=== PATIENT | male | born 1955 | race Caucasian/White ===

== ENCOUNTER 2021-01-14 08:26 | Emergency (ER) | payer OTHER ==
[2021-01-14 09:14] LABS: Absolute Lymphocytes (CBC) 1.6 K/uL (0.7-4.9); Basophils % 0.6 % (0-1.3); Hematocrit 47.8 % (39.6-49.0); Lymphocytes % 29.8 % (15.3-44.8); MPV 7.9 fL (7.6-11.3); Protime INR 1.07; RBC Red Blood Cell Count 5.63 M/uL (4.33-5.43)
[2021-01-14 09:17] LABS: BUN Blood Urea Nitrogen 24 mg/dL (7-18); Bicarbonate 28 mmol/L (21-32); Glucose Level 91 mg/dL (74-106); Magnesium 2.3 mg/dL (1.8-2.4); NT PRO-BNP 1846 pg/mL (<125); Potassium 4.4 mmol/L (3.5-5.1); Sodium Level 140 mmol/L (136-145); Troponin (Emerg Dept Use Only) < 0.02 ng/mL (0.0-0.045)
--- NOTE | 2021-01-14 09:53 | RAD REPORT ---
EXAM DESCRIPTION: RAD - Chest Single View - 01/14/2021 9:32 am CLINICAL HISTORY: PALPITATIONS COMPARISON: None TECHNIQUE: AP portable chest image was obtained 01/14/2021 9:32 am . FINDINGS: Lung volumes are low. No peripheral mass or consolidation. Heart and vasculature are kimberlyn l. No measurable pleural effusion and no pneumothorax. No acute bony abnormality seen. No acute aorti c findings suspected. IMPRESSION: No acute cardiopulmonary process.
--- NOTE | 2021-01-14 10:18 | ER ---
Nurse's Notes [facility] Name: Romero Clark Age: 65 yrs Sex: Male : 1955 Arrival Date: 01/14/2021 Time: 08:27 Bed Waiting Private MD: Diagnosis: Paroxysmal atrial fibrillation Presentation: 01/14 08:34 Chief complaint: Patient states: PT states heart beats fast on and off. Coronavirus da3 screen: Client denies travel out of the [place] in the last 14 days. At this time, the client does not indicate any symptoms associated with coronavirus-19. Ebola Screen: No symptoms or risks identified at this time. 08:34 Method Of Arrival: Ambulatory da3 08:40 Acuity: EDEN 3 da3 Triage Assessment: 08:39 General: Appears in no apparent distress. comfortable. da3 Historical: - Allergies: 08:36 sulfa; da3 08:36 Bactrim; da3 - PMHx: 08:36 Atrial fibrillation; da3 - Immunization history:: Client reports receiving the 1st dose of the Covid vaccine, . - Family history:: not pertinent. - Hospitalizations: : No recent hospitalization is reported. Vital Signs: 08:39 BP 101 / 83; Pulse 103; Resp 18; Temp 97.2; Pulse Ox 98% on R/A; da3 10:05 BP 100 / 72; Pulse 81; Resp 18; Temp 96.6; Pulse Ox 99% on R/A; da3 ED Course: 08:27 Patient arrived in ED. mr 08:38 Donald Doherty MD is Attending Physician. rn 08:40 Triage completed. da3 08:40 Inserted saline lock: 20 gauge in left antecubital area, using aseptic technique. Blood kj1 collected. 08:40 Initial lab(s) drawn, by tn, sent to lab. kj1 09:33 XRAY Chest (1 view) In Process Unspecified. EDMS 10:17 Jamil Mcpherson MD is Referral Physician. rn Administered Medications: No medications were administered Outcome: 10:18 Discharge ordered by . rn 10:20 Patient left the ED. da3 Signatures: Dispatcher [employer] EDNV Salima Segal mr Donald Doherty MD MD rn Jackson, Kandis kj1 Aj Fitzpatrick RN RN da3 Corrections: (The following items were deleted from the chart) 08:38 08:36 Allergies: No Known Allergies; da3 da3 08:38 08:36 PMHx: atrial; da3 da3 09:19 09:18 Initial lab(s) drawn, by me, sent to lab. kj1 kj1
--- NOTE | 2021-01-14 10:18 | EDPHYS ---
Physician Documentation [facility] Name: Romero Clark Age: 65 yrs Sex: Male : 1955 Arrival Date: 01/14/2021 Time: 08:27 Bed Waiting Private MD: ED Physician Donald Doherty HPI: 01/14 08:45 This 65 yrs old Male presents to ER via Ambulatory with complaints of rn Palpitations. 08:45 The patient presents with a history of irregular heart beat, heart racing. Context: The rn symptoms occur at rest. Onset: The symptoms/episode began/occurred 3 day(s) ago. Duration: The patient or guardian reports multiple episodes, that are intermittent. Modifying factors: The symptoms are aggravated by nothing. The symptoms are alleviated by nothing. Associated signs and symptoms: Pertinent positives: lightheadedness, Pertinent negatives: chest pain, fever, SOB, syncope. Severity of symptoms: At their worst the symptoms were moderate in the emergency department the symptoms have improved. The patient has experienced similar episodes in the past. The patient has not recently seen a physician. Patient reports feeling palpitations, heart racing, irregular for 3 days now. Reports has seen Dr. Chacon years ago, diagnosed with atrial fibrillation, initially prescribed Multaq but was too expensive and never filled it, currently takes metoprolol intermittently as well as a baby aspirin intermittently. Seems like patient only takes medication when feels heart is fast or problem, but not daily. Reports feels a little lightheaded, but denies chest pain or shortness of breath. No syncope.. Historical: - Allergies: 08:36 sulfa; da3 08:36 Bactrim; da3 - PMHx: 08:36 Atrial fibrillation; da3 - Immunization history:: Client reports receiving the 1st dose of the Covid vaccine, . - Family history:: not pertinent. - Hospitalizations: : No recent hospitalization is reported. ROS: 08:48 Constitutional: Negative for fever, chills, and weight loss, Eyes: Negative for injury, rn pain, redness, and discharge, Neck: Negative for injury, pain, and swelling, Cardiovascular: Negative for chest pain, and edema, Respiratory: Negative for shortness of breath, cough, wheezing, and pleuritic chest pain, Abdomen/GI: Negative for abdominal pain, nausea, vomiting, diarrhea, and constipation, Back: Negative for injury and pain, MS/Extremity: Negative for injury and deformity, Skin: Negative for injury, rash, and discoloration, Neuro: Negative for headache, weakness, numbness, tingling, and seizure. 08:48 All other systems are negative. Exam: 08:48 Constitutional: This is a well developed, well nourished patient who is awake, alert, rn and in no acute distress. Head/Face: Normocephalic, atraumatic. Eyes: Periorbital areas with no swelling, redness, or edema. Cardiovascular: Tachycardic, irregular rhythm. No pulse deficits. Respiratory: No increased work of breathing, no retractions or nasal flaring. Skin: Warm, dry MS/ Extremity: Pulses equal, no cyanosis. Neuro: Awake and alert, GCS 15 09:59 ECG was reviewed by the Attending Physician. rn Vital Signs: 08:39 BP 101 / 83; Pulse 103; Resp 18; Temp 97.2; Pulse Ox 98% on R/A; da3 10:05 BP 100 / 72; Pulse 81; Resp 18; Temp 96.6; Pulse Ox 99% on R/A; da3 MDM: 08:38 Patient medically screened. rn 10:14 ENRIQUE Risk Score: 1 - ASA use in past 7 days, Total Score = 1. Differential diagnosis: rn arrythmia, dehydration, stress disorder, atrial fibrillation. Data reviewed: vital signs, nurses notes, lab test result(s), EKG, radiologic studies, plain films, and as a result, I will discharge patient. Data interpreted: surveillance monitor: rate is 81 beats/min, rhythm is atrial fibrillation, with no ectopy, Interpretation: atrial fibrillation, Pulse oximetry: on room air is 99 %. Interpretation: normal. Test interpretation: by ED physician or midlevel provider: ECG, plain radiologic studies, CXR without pulmonary edema or infiltrate. Counseling: I had a detailed discussion with the patient and/or guardian regarding: the historical points, exam findings, and any diagnostic results supporting the discharge/admit diagnosis, lab results, radiology results, the need for outpatient follow up, to return to the emergency department if symptoms worsen or persist or if there are any questions or concerns that arise at home. Response to treatment: the patient's symptoms have mildly improved after treatment, and as a result, I will discharge patient. Special discussion: I discussed with the patient/guardian in detail that at this point there is no indication for admission to the hospital. It is understood, however, that if the symptoms persist or worsen the patient needs to return immediately for re-evaluation. Based on the history and exam findings, there is no indication for further emergent testing or inpatient evaluation. I discussed with the patient/guardian the need to see the corrugator helper for further evaluation of the symptoms. ED course: Patient with negative troponin, rate controlled, and blood pressure already on the lower side. Chest x-ray without pulmonary edema. Repeat vitals show heart rate in the 80s. Consulted with Dr. Mcpherson who agrees with outpatient evaluation and treatment, will see patient at 1 PM in his clinic. Patient grateful and agrees with plan. Will discharge home with continuation of regular metoprolol and return precautions. Will continue to take aspirin given low CHADS2 score. 01/14 08:45 Order name: Basic Metabolic Panel rn 01/14 08:45 Order name: CBC with Diff; Complete Time: 09:24 rn 01/14 08:45 Order name: Magnesium; Complete Time: 09:24 rn 01/14 08:45 Order name: NT PRO-BNP; Complete Time: 09:24 rn 01/14 08:45 Order name: PT-INR; Complete Time: 10:00 rn 01/14 08:45 Order name: Troponin (emerg Dept Use Only); Complete Time: 09:24 rn 01/14 08:45 Order name: XRAY Chest (1 view); Complete Time: 10:00 rn 01/14 08:45 Order name: EKG; Complete Time: 08:45 rn 01/14 08:45 Order name: Cardiac monitoring rn 01/14 08:45 Order name: EKG - Nurse/Tech rn 01/14 08:45 Order name: IV Saline Lock rn 01/14 08:45 Order name: Labs collected and sent rn 01/14 08:45 Order name: Basic Metabolic Panel; Complete Time: 09:24 EDMS 01/14 08:45 Order name: O2 Per Protocol rn 01/14 08:45 Order name: O2 Sat Monitoring rn EC:59 Rate is 101 beats/min. Rhythm is irregularly irregular. QRS [place] is Normal. TN interval rn is normal. QRS interval is normal. QT interval is normal. No Q waves. T waves are Normal. No ST changes noted. Clinical impression: Atrial Fibrillation. Interpreted by me. Reviewed by me. Administered Medications: No medications were administered Disposition Summary: 01/14/21 10:18 Discharge Ordered Location: Home rn Problem: an ongoing problem rn Symptoms: have improved rn Condition: Stable rn Diagnosis - Paroxysmal atrial fibrillation rn Followup: rn - With: Jamil Mcpherson MD - When: 01/16/21 at 1pm - Reason: Further diagnostic work-up, Recheck today's complaints, Continuance of care, Re-evaluation by your physician Discharge Instructions: - Discharge Summary Sheet rn - Atrial Fibrillation rn Forms: - Medication Reconciliation Form rn - Thank You Letter rn - Antibiotic rn lactation - Prescription Opioid Use rn Prescriptions: - Metoprolol Tartrate 25 mg Oral Tablet - take 1 tablet by ORAL route 2 times per day with a meal; 60 tablet; Refills: 0, rn Product Selection Permitted Signatures: Dispatcher [employer] EDMS Donald Doherty MD MD rn Allan, David, RN RN da3 Corrections: (The following items were deleted from the chart) 08:38 08:36 Allergies: No Known Allergies; da3 da3 08:38 08:36 PMHx: atrial; da3 da3
[2021-01-14 10:30] VITALS: BP 100/72; TEMP 96.6; O2SAT 99
--- NOTE | 2021-01-15 13:02 | EKG ---
Test Date: 2021-01-14 Test Time: 08:44:09 Processing Archivist: RENATE MEASUREMENT RESULTS: Intervals: Rate: 101 OR: QRSD: 78 QT: 340 QTc: 440 [place]: P: OR: QRS: 6 T: 59 INTERPRETIVE STATEMENTS: Atrial fibrillation with rapid ventricular response Abnormal ECG No previous ECG available for comparison Electronically Signed On 01-15-21 12:59:29 CDT by Jamil Mcpherson
== END 2021-01-14 10:20 | disposition home or self-care (01) ==
LOC: ER 08:26
DX: I48.0 Paroxysmal atrial fibrillation (principal); Z88.1 Allergy status to other antibiotic agents; Z88.2 Allergy status to sulfonamides
CPT/HCPCS: 36415; 71045; 80048; 83735; 83880; 84484; 85025; 85610; 93005; 99283

== ENCOUNTER 2021-03-08 14:01 | Observation (INO) | payer OTHER ==
[2021-03-08 14:37] LABS: Absolute Lymphocytes (CBC) 1.4 K/uL (0.7-4.9); Basophils % 0.5 % (0-1.3); Hematocrit 42.2 % (39.6-49.0); Lymphocytes % 32.4 % (15.3-44.8)
[2021-03-08 14:42] LABS: Protime INR 1.26
[2021-03-08 14:57] LABS: ALT/SGPT 118 U/L (12-78); AST/SGOT 48 U/L (15-37); Albumin 3.7 g/dL (3.4-5.0); Alkaline Phosphatase 73 U/L (45-117); BUN Blood Urea Nitrogen 19 mg/dL (7-18); Bicarbonate 24 mmol/L (21-32); Bilirubin Direct 0.3 mg/dL (0-0.2); Bilirubin Total 1.3 mg/dL (0.2-1.0); Glucose Level 121 mg/dL (74-106); Magnesium 2.1 mg/dL (1.8-2.4); NT PRO-BNP 1347 pg/mL (<125); Potassium 4.1 mmol/L (3.5-5.1); Sodium Level 143 mmol/L (136-145); Troponin (Emerg Dept Use Only) < 0.02 ng/mL (0.0-0.045)
--- NOTE | 2021-03-08 14:57 | RAD REPORT ---
EXAM DESCRIPTION: RAD - Chest Single View - 03/08/2021 2:42 pm CLINICAL HISTORY: CHEST PAIN COMPARISON: Chest Single View dated 01/14/2021 FINDINGS: Lines: None. Lungs: No evidence of edema or pneumonia. Pleural: No significant pleural effusions or pneumothorax. Cardiac: The heart size is within normal limits. Bones: No acute fractures. Other: IMPRESSION: No acute cardiopulmonary disease.
[2021-03-08] MEDS ORDERED: METOPROLOL TARTRATE 5 MG/5 ML INJ IV ONE (15:45)
[2021-03-08] MEDS ORDERED: NA CHLORIDE 0.9% 1,000 ML ONE (15:45)
--- NOTE | 2021-03-08 16:25 | EDPHYS ---
Physician Documentation [facility] Name: Romero Clark Age: 66 yrs Sex: Male : 1955 Arrival Date: 03/08/2021 Time: 14:04 Bed 24 Private MD: Avtar Delaney ED Physician Yves Perez HPI: 03/08 15:09 This 66 yrs old Male presents to ER via Ambulatory with complaints of AFIB. ma2 15:09 The patient presents with a history of irregular heart beat. Onset: The ma2 symptoms/episode began/occurred suddenly, At 4 AM was. Duration: The patient or guardian reports a single episode. Associated signs and symptoms: Pertinent negatives: cough, SOB, syncope, unusual stressors. Severity of symptoms: At their worst the symptoms were moderate in the emergency department the symptoms are unchanged. The patient has experienced similar episodes in the past. Patient also had TIA 5 days ago. Historical: - Allergies: 14:09 Bactrim; hb 14:09 Sulfa; hb - PMHx: 14:09 Atrial fibrillation; hb - Immunization history:: Client reports receiving the 1st dose of the Covid vaccine. - Social history:: Smoking status: Patient denies any tobacco usage or history of. Patient/guardian denies using alcohol, street drugs, The patient lives with family. - Family history:: not pertinent. - Hospitalizations: : No recent hospitalization is reported. ROS: 15:09 Constitutional: Negative for fever, chills, and weight loss. ma2 15:09 All other systems are negative. Exam: 15:09 Constitutional: This is a well developed, well nourished patient who is awake, alert, ma2 and in no acute distress. Head/Face: Normocephalic, atraumatic. Eyes: Pupils equal round and reactive to light, extra-ocular motions intact. Lids and lashes normal. Conjunctiva and sclera are non-icteric and not injected. Cornea within normal limits. Periorbital areas with no swelling, redness, or edema. ENT: Nares patent. No nasal discharge, no septal abnormalities noted. Tympanic membranes are normal and external auditory canals are clear. Oropharynx with no redness, swelling, or masses, exudates, or evidence of obstruction, uvula midline. Mucous membranes moist. Neck: Trachea midline, no thyromegaly or masses palpated, and no cervical lymphadenopathy. Supple, full range of motion without nuchal rigidity, or vertebral point tenderness. No Meningismus. Chest/axilla: Normal chest wall appearance and motion. Nontender with no deformity. No lesions are appreciated. Respiratory: Lungs have equal breath sounds bilaterally, clear to auscultation and percussion. No rales, rhonchi or wheezes noted. No increased work of breathing, no retractions or nasal flaring. Abdomen/GI: Soft, non-tender, with normal bowel sounds. No distension or tympany. No guarding or rebound. No evidence of tenderness throughout. Back: No spinal tenderness. No costovertebral tenderness. Full range of motion. Skin: Warm, dry with normal turgor. Normal color with no rashes, no lesions, and no evidence of cellulitis. MS/ Extremity: Pulses equal, no cyanosis. Neurovascular intact. Full, normal range of motion. Neuro: Awake and alert, GCS 15, oriented to person, place, time, and situation. Cranial nerves II-XII grossly intact. Motor strength 5/5 in all extremities. Sensory grossly intact. Cerebellar exam normal. Normal gait. 15:09 Cardiovascular: Rate: tachycardic, Rhythm: irregularly irregular, Pulses: Heart sounds: normal, Bilateral blood pressure: is equal. Vital Signs: 14:07 BP 125 / 81; Pulse 103; Resp 18; Temp 97.4; Pulse Ox 98% ; Weight 99.79 kg; Height 5 hb ft. 11 in. (180.34 cm); Pain 0/10; 14:30 BP 101 / 70; Pulse 99; Resp 21; Pulse Ox 99% ; bp 15:30 BP 103 / 65; Pulse 107; Resp 21; Pulse Ox 99% ; bp 20:43 BP 115 / 84; Pulse 98; Resp 15; Temp 98.1; Pulse Ox 100% on R/A; Pain 0/10; sj1 14:07 Body Mass Index 30.68 (99.79 kg, 180.34 cm) hb MDM: 14:17 Patient medically screened. [facility] 15:09 Differential diagnosis: arrythmia, dehydration, stress disorder. md2 16:22 Data reviewed: vital signs, nurses notes. Counseling: I had a detailed discussion with ma2 the patient and/or guardian regarding: the historical points, exam findings, and any diagnostic results supporting the discharge/admit diagnosis, the presence of at least one elevated blood pressure reading (>120/80) during this emergency department visit, the need for outpatient follow up. Response to treatment: the patient's symptoms have markedly improved after treatment. ED course: Patient had TIA 6 days ago, therefore he is high risk, his A. fib is paroxysmal. Rate is controlled to 70 bpm, he is normotensive at this point.. 03/08 14:06 Order name: Basic Metabolic Panel md2 03/08 14:06 Order name: CBC with Diff md2 03/08 14:06 Order name: LFT's md2 03/08 14:06 Order name: Magnesium md2 03/08 14:06 Order name: NT PRO-BNP md2 03/08 14:06 Order name: PT-INR; Complete Time: 15:02 ma2 03/08 14:06 Order name: Troponin (emerg Dept Use Only) [facility] 03/08 14:06 Order name: Basic Metabolic Panel; Complete Time: 15:02 EDMS 03/08 14:07 Order name: CBC with Automated Diff; Complete Time: 15:02 EDMS 03/08 14:07 Order name: Liver (Hepatic) Function; Complete Time: 15:02 EDMS 03/08 14:07 Order name: Magnesium; Complete Time: 15:02 EDMS 03/08 14:07 Order name: NT PRO-BNP; Complete Time: 15:02 EDMS 03/08 14:07 Order name: Troponin (Emerg Dept Use Only); Complete Time: 15:02 EDMS 03/08 17:08 Order name: COVID-19 : Document "Date of Symptom Onset" if Symptomatic. eb 03/08 14:06 Order name: XRAY Chest (1 view); Complete Time: 15:02 ma2 03/08 14:06 Order name: EKG; Complete Time: 14:07 ma2 03/08 14:06 Order name: Cardiac monitoring; Complete Time: 14:26 ma2 03/08 14:06 Order name: EKG - Nurse/Tech; Complete Time: 14:26 ma2 03/08 14:06 Order name: IV Saline Lock; Complete Time: 14:26 ma2 03/08 14:06 Order name: Labs collected and sent; Complete Time: 14:27 ma2 03/08 14:06 Order name: O2 Per Protocol; Complete Time: 14:27 ma2 03/08 14:06 Order name: O2 Sat Monitoring; Complete Time: 14:27 md2 03/08 17:20 Order name: CORONAVIRUS EDMS 03/08 18:44 Order name: SARS-COV-2 RT PCR EDMS Administered Medications: 15:30 Drug: Metoprolol 5 mg Route: IVP; Site: right forearm; bp 19:19 Follow up: Response: Blood pressure is lowered 1 20:53 Follow up: Response: Marked relief of symptoms 1 15:30 Drug: NS 0.9% 1000 ml Route: IV; Rate: 1 bolus; Site: right forearm; bp 20:53 Follow up: IV Status: Completed infusion 1 Disposition Summary: 03/08/21 16:24 Hospitalization Ordered Hospitalization Status: Inpatient Admission md2 Provider: Bennie Doherty ma Location: Telemetry/MedSurg (Inpatient) ma2 Condition: Stable ma2 Problem: new ma2 Symptoms: are unchanged md2 Bed/Room Type: Standard [facility] Room Assignment: 209(03/08/21 20:16) eb Diagnosis - Persistent atrial fibrillation - with RVR ma2 Forms: - Medication Reconciliation Form ma2 - SBAR form md2 Signatures: Dispatcher [employer] EDJustina Mena RN RN Vin Booker RN RN bp Alzahri, Mohammad, MD MD md2 Jeanine Steele Sade RN sj1 Corrections: (The following items were deleted from the chart) 20:16 16:24 ma2 eb
--- NOTE | 2021-03-08 16:25 | ER ---
Nurse's Notes [facility] Name: Romero Clark Age: 66 yrs Sex: Male : 1955 Arrival Date: 03/08/2021 Time: 14:04 Bed 24 Private MD: Avtar Delaney Diagnosis: Persistent atrial fibrillation-with RVR Presentation: 03/08 14:07 Chief complaint: Palpitations since this morning. Reports TIA 1 week ago. Hx of Afib hb and HTN. Coronavirus screen: At this time, the client does not indicate any symptoms associated with coronavirus-19. Ebola Screen: No symptoms or risks identified at this time. Initial Sepsis Screen: Does the patient meet any 2 criteria? No. Patient's initial sepsis screen is negative. Does the patient have a suspected source of infection? No. Patient's initial sepsis screen is negative. Risk Assessment: Do you want to hurt yourself or someone else? Patient reports no desire to harm self or others. Onset of symptoms was March 08, 2021. 14:07 Method Of Arrival: Ambulatory hb 14:07 Acuity: EDEN 3 hb Triage Assessment: 14:15 General: Appears in no apparent distress. comfortable, Behavior is cooperative, bp appropriate for age, anxious. Pain: Denies pain. EENT: No deficits noted. Neuro: No deficits noted. Cardiovascular: Rhythm is atrial fibrillation with rapid ventricular response. Respiratory: No deficits noted. GI: No signs and/or symptoms were reported involving the gastrointestinal system. : No signs and/or symptoms were reported regarding the genitourinary system. Derm: No deficits noted. Musculoskeletal: No deficits noted. Historical: - Allergies: 14:09 Bactrim; hb 14:09 Sulfa; hb - PMHx: 14:09 Atrial fibrillation; hb - Immunization history:: Client reports receiving the 1st dose of the Covid vaccine. - Social history:: Smoking status: Patient denies any tobacco usage or history of. Patient/guardian denies using alcohol, street drugs, The patient lives with family. - Family history:: not pertinent. - Hospitalizations: : No recent hospitalization is reported. Screenin:25 Abuse screen: Denies threats or abuse. Denies injuries from another. Nutritional bp screening: No deficits noted. Tuberculosis screening: No symptoms or risk factors identified. Fall Risk None identified. Assessment: 14:15 General: SEE TRIAGE NOTE. bp 15:30 Reassessment: No changes from previously documented assessment. Patient and/or family bp updated on plan of care and expected duration. Pain level reassessed. 16:30 Reassessment: No changes from previously documented assessment. Patient and/or family bp updated on plan of care and expected duration. Pain level reassessed. PT TO BE ADMITTED. 17:30 Reassessment: HOSPITALIST AT B/S. bp 18:30 Reassessment: No changes from previously documented assessment. Patient and/or family bp updated on plan of care and expected duration. Pain level reassessed. ADMIT IN PROCESS. 21:14 Reassessment: Report called Nat AGRAWAL on 2 nd floor. bc5 Vital Signs: 14:07 BP 125 / 81; Pulse 103; Resp 18; Temp 97.4; Pulse Ox 98% ; Weight 99.79 kg; Height 5 hb ft. 11 in. (180.34 cm); Pain 0/10; 14:30 BP 101 / 70; Pulse 99; Resp 21; Pulse Ox 99% ; bp 15:30 BP 103 / 65; Pulse 107; Resp 21; Pulse Ox 99% ; bp 20:43 BP 115 / 84; Pulse 98; Resp 15; Temp 98.1; Pulse Ox 100% on R/A; Pain 0/10; sj1 14:07 Body Mass Index 30.68 (99.79 kg, 180.34 cm) hb ED Course: 14:04 Patient arrived in ED. mr 14:04 Avtar Delaney MD is Private Physician. mr 14:09 Triage completed. hb 14:09 Arm band placed on. hb 14:17 Yves Perez MD is Attending Physician. ma2 14:23 Vin Arias, NGHIA is Primary Nurse. bp 14:25 Patient has correct armband on for positive identification. Bed in low position. Call bp light in reach. Side rails up X2. Adult w/ patient. 14:25 Inserted saline lock: 20 gauge in right wrist, using aseptic technique. Blood collected.bp 14:42 XRAY Chest (1 view) In Process Unspecified. EDMS 16:24 Bennie Doherty MD is Hospitalizing Provider. ma2 20:45 No provider procedures requiring assistance completed. sj1 20:53 COVID-19 : Document "Date of Symptom Onset" if Symptomatic. Sent. sj1 20:53 CORONAVIRUS Sent. sj1 Administered Medications: 15:30 Drug: Metoprolol 5 mg Route: IVP; Site: right forearm; bp 19:19 Follow up: Response: Blood pressure is lowered sj1 20:53 Follow up: Response: Marked relief of symptoms sj1 15:30 Drug: NS 0.9% 1000 ml Route: IV; Rate: 1 bolus; Site: right forearm; bp 20:53 Follow up: IV Status: Completed infusion 1 Outcome: 16:24 Decision to Hospitalize by Provider. ma2 21:41 Patient left the ED. sj1 Signatures: Dispatcher [employer] HERMES SegalSalima mr Justina Persaud RN RN Vin Booker RN RN Yves Dash MD MD ma2 Bethany Myers RN RN 5 Valentine Canela RN RN sj1 Corrections: (The following items were deleted from the chart) 16:08 11:53 Metoprolol 5 mg IVP in right forearm bp bp
[2021-03-08] MEDS: SOTALOL HCL 80 MG TAB PO SCH (17:11)
--- NOTE | 2021-03-08 17:15 | P.HP ---
Certification for Inpatient Patient admitted to: Observation With expected LOS: <2 Midnights Patient will require the following post-hospital care: None Practitioner: I am a practitioner with admitting privileges, knowledge of patient current condition, hospital course, and medical plan of care. Services: Services provided to patient in accordance with Admission requirements found in Title 42 Section 412.3 of the Code of Federal Regulations Patient History Date of Service: 03/08/21 Primary Care Provider: None; Cardiology-Dr. Mcpherson Reason for admission: Palpitations History of Present Illness: 66-year-old male with history of atrial fibrillation, hyperlipidemia and recent TIA. Patient about 1 week ago was seen at [facility] for vision loss. Patient was sent to [place] for further evaluation. Patient was found to have TIA as he has full recovery of vision. Patient further reports that he has a history of atrial fibrillation. He is seen by cardiology. He takes metoprolol. He reports that he was seen by cardiology in the past. His medication was increased. When he last saw his balloon tester his balloon tester told him to continue with medication but the patient continue to use his prior dose. Today he had palpitations. Patient came to the ER for further evaluation. In the ER patient was evaluated. Patient was found to have A. fib with RVR with a rate around 120. Chest x-ray unremarkable. Labs reviewed. Liver function test slightly elevated. Covid test pending. Patient admitted for further evaluation. - Past Medical/Surgical History Diabetic: No -: Atrial fibrillation on chronic anticoagulation therapy -: History of TIA -: Hyperlipidemia -: Thyroid nodule -: Rotator cuff repair Psychosocial/ Personal History: Patient is - Family History Family History: Reviewed- Non-Contributory - Social History Smoking Status: Never smoker Alcohol use: No CD- Drugs: No Caffeine use: Yes Place of Residence: Home Review of Systems General: As per HPI Eyes: Unremarkable ENT: Unremarkable Respiratory: Unremarkable Cardiovascular: Palpitations, As per HPI Gastrointestinal: Unremarkable Genitourinary: Unremarkable Musculoskeletal: Unremarkable Integumentary: Unremarkable Neurological: Unremarkable Lymphatics: Unremarkable Physical Examination - Studies Laboratory Data (last 24 hrs) 03/08/21 14:16: PT 14.5 H, INR 1.26 03/08/21 14:16: WBC 4.40, Hgb 14.5, Hct 42.2, Plt Count 217 03/08/21 14:16: Sodium 143, Potassium 4.1, BUN 19 H, Creatinine 0.89, Glucose 121 H, Magnesium 2.1, Total Bilirubin 1.3 H, AST 48 H, ALT 118 H, Alkaline Phosphatase 73 Assessment and Plan - Plan COVID: pending CXR: Unremarkable Physical Exam: GENERAL: The patient is a well-developed, well-nourished, in no apparent distress. Alert and oriented x3. VITAL SIGNS: Reviewed HEENT: Head is normocephalic and atraumatic. Extraocular muscles are intact. Pupils are equal, round, and reactive to light and accommodation. Nares appeared normal. Mouth is well hydrated and without lesions. Mucous membranes are moist. NECK: Supple. No carotid bruits. No lymphadenopathy or thyromegaly. LUNGS: Clear to auscultation. No crackles or wheezes are heard. HEART: Irregular irregular. Rate around 100-110 ABDOMEN: Soft, nontender, and nondistended. Positive bowel sounds. No hepatosplenomegaly was noted. EXTREMITIES: Without any cyanosis, clubbing, rash, lesions or peripheral edema. NEUROLOGIC: The patient is oriented to person, place and time. Strength and sensation are grossly intact. Face is symmetric. SKIN: Normal color, turgor and temperature. No ulcerations or rashes noted. Impression: Atrial fibrillation with RVR Hyperlipidemia History of recent TIA Thyroid nodule Plan: Atrial fibrillation with RVR: Patient will be admitted for further evaluation and treatment. Case discussed with cardiology. Cardiology recommends to discontinue metoprolol. Will start Betapace 80 mg 1 pill twice daily. Continue Eliquis 5 mg 1 pill twice daily. Continue Lipitor 40 mg daily. We will add folic acid 1 mg daily. Will monitor the patient closely. Continue to monitor telemetry and cardiac enzymes. Anticipate discharge in the next 24 hours after third dose of Betapace given and medically stable. Await further recommendations from cardiology. Hyperlipidemia: Continue Lipitor. Will check fasting lipid panel. History of recent TIA: Patient recently hospitalized at [facility]. Patient was started on Eliquis at that time. Continue Eliquis. Patient asymptomatic at this time. Thyroid nodule: Patient is to follow-up with a specialist here soon to get this further worked up. Will check thyroid panel. Code Status: Full Code DVT prophylaxis: Eliquis Advanced Care Planning-30 minutes: Home at discharge Discharge Plan: Home Plan to discharge in: 24 Hours - Advance Directives Does patient have a Living Will: No Does patient have a Durable POA for Healthcare: No - Code Status/Comfort Care Code Status Assessed: Yes (Full code) Time Spent Managing Pts Care (In Minutes): 55
[2021-03-08] MEDS ORDERED: ACETAMINOPHEN 500 MG TAB PO PRN (20:27)
[2021-03-08] MEDS ORDERED: ONDANSETRON 4 MG/2 ML VIAL IV PRN (20:27)
[2021-03-08] MEDS: APIXABAN 5 MG TABLET PO SCH (20:42)
[2021-03-08] MEDS ORDERED: SOTALOL HCL 80 MG TAB ONE (20:57)
[2021-03-08] MEDS ORDERED: ATORVASTATIN 20 MG TAB ONE (20:57)
[2021-03-08] MEDS ORDERED: APIXABAN 5 MG TABLET ONE (20:58)
[2021-03-08] MEDS ORDERED: ATORVASTATIN 40 MG TAB PO SCH (21:00)
[2021-03-08 21:46] VITALS: BMI 31.5
[2021-03-08 22:47] LABS: Creatine Phosphokinase 88 U/L (39-308); Troponin I < 0.02 ng/mL (0.0-0.045)
[2021-03-09 04:10] VITALS: O2SAT 96
[2021-03-09 04:57] LABS: Absolute Lymphocytes (CBC) 1.6 K/uL (0.7-4.9); Basophils % 0.6 % (0-1.3); Hematocrit 41.3 % (39.6-49.0); Lymphocytes % 36.6 % (15.3-44.8); MPV 8.3 fL (7.6-11.3); RBC Red Blood Cell Count 4.86 M/uL (4.33-5.43)
[2021-03-09] MEDS: SOTALOL HCL 80 MG TAB PO SCH ×2 (05:18→14:21)
[2021-03-09 05:22] LABS: ALT/SGPT 89 U/L (12-78); AST/SGOT 32 U/L (15-37); Albumin 3.2 g/dL (3.4-5.0); Alkaline Phosphatase 61 U/L (45-117); BUN Blood Urea Nitrogen 16 mg/dL (7-18); Bicarbonate 26 mmol/L (21-32); Glucose Level 99 mg/dL (74-106); HDL Cholesterol 33 mg/dL (40-60); LDL Cholesterol, Calculated 53 (<130); Magnesium 2.1 mg/dL (1.8-2.4); Protein, Total 6.3 g/dL (6.4-8.2); Sodium Level 143 mmol/L (136-145)
--- NOTE | 2021-03-09 06:06 | P.PN ---
Subjective Date of Service: 03/09/21 Primary Care Provider: None; Cardiology-Dr. Mcpherson Chief Complaint: Palpitations Subjective: Improving, Doing well Physical Examination - Vital Signs Temperature: 97.5 F Blood Pressure: 107/58 Pulse: 84 Respirations: 18 Pulse Ox (%): 99 - Studies Laboratory Data (last 24 hrs) 03/08/21 14:16: PT 14.5 H, INR 1.26 03/08/21 14:16: WBC 4.40, Hgb 14.5, Hct 42.2, Plt Count 217 03/08/21 14:16: Sodium 143, Potassium 4.1, BUN 19 H, Creatinine 0.89, Glucose 121 H, Magnesium 2.1, Total Bilirubin 1.3 H, AST 48 H, ALT 118 H, Alkaline Phosphatase 73 Assessment & Plan Discharge Plan: Home Plan to discharge in: 24 Hours Physician Review Additional Text: COVID: negative CXR: COMPARISON: Chest Single View dated 01/14/2021 FINDINGS: Lines: None. Lungs: No evidence of edema or pneumonia. Pleural: No significant pleural effusions or pneumothorax. Cardiac: The heart size is within normal limits. Bones: No acute fractures. IMPRESSION: No acute cardiopulmonary disease. Physical Exam: GENERAL: The patient is a well-developed, well-nourished, in no apparent distress. Alert and oriented x3. VITAL SIGNS: Reviewed HEENT: Neck supple LUNGS: Clear to auscultation. No crackles or wheezes are heard. HEART: A. fib rate controlled ABDOMEN: Soft, nontender, and nondistended. Positive bowel sounds. No hepatosplenomegaly was noted. EXTREMITIES: Without any cyanosis, clubbing, rash, lesions or peripheral edema. NEUROLOGIC: The patient is oriented to person, place and time. Strength and sensation are grossly intact. Face is symmetric. SKIN: Normal color, turgor and temperature. No ulcerations or rashes noted. Impression: Atrial fibrillation with RVR Hyperlipidemia History of recent TIA Thyroid nodule Plan: Atrial fibrillation with RVR: Patient presented with atrial fibrillation. Case discussed at length with cardiology. Patient started on Betapace 80 mg 1 pill twice daily. Patient already takes Eliquis 5 mg 1 pill twice daily. Metoprolol was discontinued. Patient doing well at this time. Anticipate discharge later today after third dose of Betapace given. This to be given at 2 PM. Will discuss further with cardiology. Hyperlipidemia: Continue Lipitor. LDL 53 History of recent TIA: Patient recently hospitalized at [facility]. Patient was started on Eliquis at that time. Continue Eliquis. Patient asymptomatic at this time. Thyroid nodule: Patient is to follow-up with a specialist here soon to get this further worked up. Will check thyroid panel. Code Status: Full Code DVT prophylaxis: Eliquis Advanced Care Planning-30 minutes: Home at discharge Discharge Plan: Home Time Spent Managing Pts Care (In Minutes): 55
[2021-03-09] MEDS: APIXABAN 5 MG TABLET PO SCH (08:34)
[2021-03-09] MEDS ORDERED: FOLIC ACID 1 MG TABLET PO SCH (09:00)
--- NOTE | 2021-03-09 09:20 | P.DS ---
Admission Date: 03/08/21 Discharge Date: 03/09/21 Primary Care Provider: Dr. Delaney; Cardiology-Dr. Mcpherson Disposition: ROUTINE DISCHARGE Discharge Condition: GOOD Reason for Admission: Palpitations Consultations: Cardiology-Dr. Mcpherson Procedures: COVID: negative CXR: COMPARISON: Chest Single View dated 01/14/2021 FINDINGS: Lines: None. Lungs: No evidence of edema or pneumonia. Pleural: No significant pleural effusions or pneumothorax. Cardiac: The heart size is within normal limits. Bones: No acute fractures. IMPRESSION: No acute cardiopulmonary disease. Medical Problem List: Atrial fibrillation with RVR Hyperlipidemia History of recent TIA Thyroid nodule Brief History of Present Illness: 66-year-old male with history of atrial fibrillation, hyperlipidemia and recent TIA. Patient about 1 week ago was seen at [facility] for vision loss. Patient was sent to [place] for further evaluation. Patient was found to have TIA as he has full recovery of vision. Patient further reports that he has a history of atrial fibrillation. He is seen by cardiology. He takes metoprolol. He reports that he was seen by cardiology in the past. His medication was increased. When he last saw his dandy operator his dandy operator told him to continue with medication but the patient continue to use his prior dose. Today he had palpitations. Patient came to the ER for further evaluation. In the ER patient was evaluated. Patient was found to have A. fib with RVR with a rate around 120. Chest x-ray unremarkable. Labs reviewed. Liver function test slightly elevated. Covid test pending. Patient admitted for further evaluation. Hospital Course: Patient with history of atrial fibrillation. Patient presented with atrial fibrillation with RVR. Patient was admitted for treatment. Case discussed at length with cardiology. Patient was given IV metoprolol with improvement in the emergency room. Patient was transition from metoprolol to Betapace 80 mg 1 pill twice daily. Patient doing well at this time. Patient remains in atrial fibrillation with rate control. At discharge patient will continue with Betapace 80 mg 1 pill twice daily and Eliquis 5 mg 1 pill twice daily. Recommend follow-up with cardiology in 1 to 2 weeks to follow-up his hospitalization. Education on atrial fibrillation provided. Education on Eliquis also provided. Patient with hyperlipidemia. LDL 53. Patient will continue with Lipitor 40 mg daily. Patient with recent history of TIA. Patient asymptomatic at this time. Patient was hospitalized at [facility]. He was started on Eliquis at that time. At discharge patient will continue with Eliquis 5 mg 1 pill twice daily and folic acid 1 mg daily. Patient with history of thyroid nodule. Patient is to see a specialist here soon for further work-up. TSH and free T4 unremarkable. Vital Signs/Physical Exam: Temp Pulse Resp BP Pulse Ox 97.5 F 84 18 107/58 L 99 03/09/21 09:14 03/09/21 09:14 03/09/21 09:14 03/09/21 09:14 03/09/21 09:14 General: Alert, In no apparent distress, Oriented x3, Cooperative HEENT: Atraumatic Neck: Supple Respiratory: Clear to auscultation bilaterally Cardiovascular: Irregular heart rate/rhythm (Atrial fibrillation rate controlled) Gastrointestinal: Normal bowel sounds, No masses, No rebound, No guarding Musculoskeletal: No erythema, No tenderness, No warmth Integumentary: No tenderness/swelling Neurological: Normal speech, Normal strength at 5/5 x4 extr, Normal tone, Normal affect Laboratory Data at Discharge: WBC 4.50 K/uL (4.3-10.9) 03/09/21 04:22 Hgb 14.2 g/dL (13.6-17.9) 03/09/21 04:22 Hct 41.3 % (39.6-49.0) 03/09/21 04:22 Plt Count 204 K/uL (152-406) 03/09/21 04:22 PT 14.5 SECONDS (9.5-12.5) H 03/08/21 14:16 INR 1.26 03/08/21 14:16 Sodium 143 mmol/L (136-145) 03/09/21 04:22 Potassium 4.0 mmol/L (3.5-5.1) 03/09/21 04:22 BUN 16 mg/dL (7-18) 03/09/21 04:22 Creatinine 0.73 mg/dL (0.55-1.3) 03/09/21 04:22 Glucose 99 mg/dL (74-106) 03/09/21 04:22 Magnesium 2.1 mg/dL (1.8-2.4) 03/09/21 04:22 Total Bilirubin 1.0 mg/dL (0.2-1.0) 03/09/21 04:22 AST 32 U/L (15-37) 03/09/21 04:22 ALT 89 U/L (12-78) H 03/09/21 04:22 Alkaline Phosphatase 61 U/L (45-117) 03/09/21 04:22 Troponin I < 0.02 ng/mL (0.0-0.045) 03/08/21 22:08 Triglycerides 111 mg/dL (<150) 03/09/21 04:22 Cholesterol 108 mg/dL (<200) 03/09/21 04:22 HDL Cholesterol 33 mg/dL (40-60) L 03/09/21 04:22 Cholesterol/HDL Ratio 3.27 03/09/21 04:22 Home Medications: Apixaban [Eliquis] 5 mg PO BID 03/08/21 Atorvastatin Calcium 40 mg PO BEDTIME 03/08/21 Folic Acid 1 mg PO DAILY #90 tablet 03/09/21 Sotalol HCl [Betapace*] 80 mg PO BID 6AM 6PM #60 tab 03/09/21 New Medications: Sotalol HCl [Betapace*] 80 mg PO BID 6AM 6PM #60 tab Folic Acid 1 mg PO DAILY #90 tablet Physician Discharge Instructions: Patient with history of atrial fibrillation. Patient presented with atrial fibrillation with RVR. Patient was admitted for treatment. Case discussed at length with cardiology. Patient was given IV metoprolol with improvement in the emergency room. Patient was transition from metoprolol to Betapace 80 mg 1 pill twice daily. Patient doing well at this time. Patient remains in atrial fibrillation with rate control. At discharge patient will continue with Bet apace 80 mg 1 pill twice daily and Eliquis 5 mg 1 pill twice daily. Recommend follow-up with cardiology in 1 to 2 weeks to follow-up his hospitalization. Education on atrial fibrillation provided. Education on Eliquis also provided. Patient with hyperlipidemia. LDL 53. Patient will continue with Lipitor 40 mg daily. Patient with recent history of TIA. Patient asymptomatic at this time. Patient was hospitalized at [facility]. He was started on Eliquis at that time. At discharge patient will continue with Eliquis 5 mg 1 pill twice daily and folic acid 1 mg daily. Patient with history of thyroid nodule. Patient is to see a specialist here soon for further work-up. TSH and free T4 unremarkable. Diet: AHA Activity: Ad carmina Followup: Avtar Delaney MD [Primary Care Provider] - Time spent managing pt's care (in minutes): 55
[2021-03-09 12:43] VITALS: BP 113/68; TEMP 98.5
--- NOTE | 2021-03-09 17:01 | CON ---
Date of Consultation: 03/08/2021 Reason For Consultation: Atrial fibrillation with rapid ventricular response. History Of Present Illness: Mr. Clark is a 66-year-old man. He is very well known to me from previou s office visits. He has a history of atrial fibrillation that is paroxysmal. Came in with rapid zaina tricular response, unrelated to body position, improved at time of the day or exertion. His symptoms have been going on for a few days intermittently, but they got worse about 4 o'clock in the morning today and he came into the emergency room. Recently, he had a similar episode and had a TIA with dip lopia and was placed on anticoagulation at [facility]. He was placed on metoprolol. He came in with a hea rt rate of 103, otherwise his vital signs are stable and he was pain free. He denied PND, orthopnea, or syncope. He had palpitation. Denied any shortness of breath. Denied any unexplained nausea, vo miting, diaphoresis. He denied any fever or chills. Allergies: HE IS ALLERGIC TO BACTRIM AND SULFA. Medications: At home include Eliquis, Lipitor, and metoprolol. Review of Systems: Negative. Social History: Negative. Family History: Noncontributory. Physical Examination: Vital Signs: Other than the atrial fibrillation were normal. His heart rate was 107. He weighed 22 8 pounds. O2 saturation was 99%. HEENT: Negative. Neck: Supple with no bruit. Chest: Clear to auscultation and percussion. Cardiac: Revealed irregularly irregular rhythm and rate without any murmurs, gallops, or rubs. Abdomen: Benign. Extremities: Revealed no clubbing, cyanosis, or edema. Diagnostic Data: Normal except for slightly elevated liver function tests. His BNP was 1347. His t roponin was negative. Chest x-ray was negative. EKG showed atrial fibrillation. Impression And Plan: Atrial fibrillation, recent transient ischemic attack, on Eliquis. We will put him on Betapace 80 mg b.i.d. If he does not convert over the next couple of weeks, we will probably do a cardioversion. He has had a normal echo and normal stress test in the office, I cannot remembe r when, but I will check on that. Also, he has dyslipidemia, on Lipitor. We would rate control and continue Betapace, give him at least 3 dosages before he goes home. Continue Eliquis. I will see robbie m in the office as soon as possible. JOÃO Voice ID: [id number] Report ID: [id number]
== END 2021-03-09 15:16 | disposition home or self-care (01) ==
LOC: ER 14:01 → ERHOLD 17:02 → 2ND 20:49
PROVIDERS: ADMIT Family Medicine; ATTEND Family Medicine
DX: I48.91 Unspecified atrial fibrillation (principal); E78.5 Hyperlipidemia, unspecified; E04.1 Nontoxic single thyroid nodule; Z86.73 Personal history of transient ischemic attack (TIA), and cerebral infarction without residual deficits; Z79.01 Long term (current) use of anticoagulants; Z88.2 Allergy status to sulfonamides; Z88.3 Allergy status to other anti-infective agents; Z20.822 Contact with and (suspected) exposure to COVID-19
CPT/HCPCS: 96361; 85025 ×2; 80048; 36415; 83735 ×2; 82550; 85610; 80061; 80076; 84443; 84484 ×2; 82553; 84439; 80053; 83880; 71045; 96374; 99284; U0003; J7030; G0378 ×3